=== PATIENT | male | born 1975 | race Caucasian/White ===

== ENCOUNTER 2017-05-06 22:40 | Emergency (ER) | payer BC, OTHER ==
[2017-05-06] MEDS ORDERED: Sodium Chloride 0.9% 1000 ML 1,000 ML IV STA (23:01)
--- NOTE | 2017-05-06 23:11 | ERPHSYRPT ---
- History of Present Illness Time Seen by Provider: 05/06/17 22:50 Historian: patient Physician History: PATIENT WITH A HISTORY OF CHRONIC ALCOHOL USE COMPLAINS OF ACUTE ONSET OF SHAKES FOLLOWED BY CHEST PAINS, FOLLOWED BY EMESIS X 1. DENIES CHEST PAIN UPON ARRIVAL, DIFFICULTY BREATHING OR SHORTNESS OF BREATH. ADMITS TO BEING NONCOMPLIANT WITH BLOOD PRESSURE MEDICAINE AND HIS POTASSIUM. Timing/Duration: today Activities at Onset: none Quality: throbbing Location: substernal Chest Pain Radiation: no radiation Severity of Pain-Max: moderate Severity of Pain-Current: none Associated Symptoms: nausea, vomiting Prior Chest Pain/Cardiac Workup: no prior chest pain Nitro Today/Relief: no nitro taken today Aspirin Treatment Today: no aspirin today Allergies/Adverse Reactions: No Known Drug Allergies Allergy (Verified 05/29/14 00:56) Home Medications: No Home Meds 0 mg PO UD 09/28/11 [History] Hx Tetanus, Diphtheria Vaccination/Date Given: Yes Hx Influenza Vaccination/Date Given: No Hx Pneumococcal Vaccination/Date Given: No - Review of Systems Constitutional: No Fever, No Chills Eyes: No Symptoms Ears, Nose, & Throat: No Symptoms Respiratory: No Cough, No Dyspnea Cardiac: Chest Pain, No Edema, No Syncope Abdominal/Gastrointestinal: Nausea, Vomiting, No Abdominal Pain, No Diarrhea Genitourinary Symptoms: No Symptoms, No Dysuria Musculoskeletal: No Symptoms, No Back Pain, No Neck Pain Skin: No Rash Neurological: No Dizziness, No Focal Weakness, No Sensory Changes Psychological: No Symptoms Endocrine: No Symptoms All Other Systems: Reviewed and Negative - Past Medical History Pertinent Past Medical History: No Respiratory History: Other (pleurisy) - Past Surgical History Past Surgical History: No - Social History Smoking Status: Current every day smoker How long have you smoked: 1 Exposure to second hand smoke: No Drug Use: none Patient Lives Alone: No - Nursing Vital Signs Nursing Vital Signs: Initial Vital Signs Temperature 97.8 F 05/06/17 23:02 Pulse Rate 78 05/06/17 23:02 Respiratory Rate 22 05/06/17 23:02 Blood Pressure 129/78 05/06/17 23:02 O2 Sat by Pulse Oximetry 97 05/06/17 23:02 Pain Scale Pain Intensity 6 - Physical Exam General Appearance: no apparent distress, alert Eye Exam: PERRL/EOMI, eyes nml inspection Ears, Nose, Throat Exam: normal ENT inspection, moist mucous membranes Neck Exam: normal inspection, non-tender, supple, full range of motion Respiratory Exam: normal breath sounds, chest tenderness (PARASTERNAL TENDERNESS T-2 TO T-5), lungs clear, No respiratory distress Cardiovascular Exam: regular rate/rhythm, normal heart sounds Gastrointestinal/Abdomen Exam: soft, normal bowel sounds (NONTENDER), No tenderness, No mass Back Exam: normal inspection, No CVA tenderness, No vertebral tenderness Extremity Exam: normal inspection, normal range of motion Neurologic Exam: alert, oriented x 3, cooperative, normal mood/affect, sensation nml, No motor deficits Skin Exam: normal color, warm, dry - Course EKG Interpreted by Me: RATE, Sinus Rhythm, NORMAL AXIS - Radiology Exams Chest X-ray Interpretation: Interpreted by me, Negative Ordered Tests: Active Orders 24 hr Category Date Time Status Electrical Experimental Mechanic STAT Care 05/06/17 23:02 Active EKG-ER Only STAT Care 05/06/17 23:01 Active CHEST 1 VIEW (PORTABLE) Stat Exams 05/06/17 23:02 Taken CBC W DIFF Stat Lab 05/06/17 23:24 Completed CMP Stat Lab 05/06/17 23:24 Completed D-DIMER QUANTITATION Stat Lab 05/06/17 23:24 Received ETHYL ALCOHOL Stat Lab 05/06/17 23:24 Completed MAGNESIUM Stat Lab 05/06/17 23:24 Completed NT PRO BNP Stat Lab 05/06/17 23:24 Completed TROPONIN Q3H Lab 05/06/17 23:24 Completed TROPONIN Q3H Lab 05/07/17 02:15 Ordered TROPONIN Q3H Lab 05/07/17 05:15 Ordered TROPONIN Q3H Lab 05/07/17 08:15 Ordered TROPONIN Q3H Lab 05/07/17 11:15 Ordered Urine Triage Profile Stat Lab 05/06/17 23:15 Completed Medication Summary Discontinued Medications Generic Name Dose Route Start Last Admin Trade Name Freq PRN Reason Stop Dose Admin Sodium Chloride 1,000 mls @ 999 mls/hr 05/06/17 23:01 05/06/17 23:18 Sodium Chloride 0.9% 1000 Ml IV 05/07/17 00:01 999 mls/hr .Q1H1M STA Administration Sodium Chloride Confirm 05/06/17 23:17 Sodium Chloride 0.9% 1000 Ml Administered 05/06/17 23:18 Dose 1,000 mls @ ud .ROUTE .STK-MED ONE Potassium Chloride 40 meq 05/07/17 00:22 Klor Con 10 Meq PO 05/07/17 00:23 STAT ONE Lab/Rad Data: Laboratory Result Diagrams 05/06/17 23:24 05/06/17 23:24 Laboratory Results 05/06/17 05/06/17 05/06/17 Range/Units 23:24 23:24 23:24 WBC (4.0-10.5) K/mm3 RBC (4.1-5.6) M/mm3 Hgb (12.5-18.0) gm/dl Hct (42-50) % MCV (78-100) fl MCH (26-32) pg MCHC (32-36) g/dl RDW (11.5-14.0) % Plt Count (150-450) K/mm3 MPV (6-9.5) fl Gran % (36.0-66.0) % Lymphocytes % (24.0-44.0) % Monocytes % (0.0-12.0) % Eosinophils % (0.00-5.0) % Basophils % (0.0-0.4) % Basophils # (0-0.4) D-Dimer < 215 (0-500) ng/mL Sodium 141 (136-145) mEq/L Potassium 3.1 L (3.5-5.1) mEq/L Chloride 104 (98-107) mEq/L Carbon Dioxide 24.2 (21-32) mEq/L Anion Gap 16.0 H (5-15) MEQ/L BUN 10 (9-20) mg/dL Creatinine 0.77 (0.55-1.30) mg/dl Estimated GFR > 60 ML/MIN Glucose 88 (70-110) MG/DL Calcium 8.9 (8.5-10.1) mg/dL Magnesium 2.4 (1.8-2.4) mg/dL Total Bilirubin 0.20 (0.2-1.0) mg/dL AST 22 (15-37) U/L ALT 33 (12-78) U/L Alkaline Phosphatase 82 (46-116) U/L Troponin I < 0.017 (0.000-0.056) ng/ml NT-Pro-B Natriuret Pep 20 (0-125) pg/ml Serum Total Protein 7.3 (6.4-8.2) gm/dL Albumin 3.8 (3.4-5.0) g/dL Urine Opiates Level (NEGATIVE) Ur Methadone (NEGATIVE) Urine Barbiturates (NEGATIVE) Ur Phencyclidine (PCP) (NEGATIVE) Urine Amphetamine (NEGATIVE) U Benzodiazepine Level (NEGATIVE) Urine Cocaine (NEGATIVE) Urine Marijuana (THC) (NEGATIVE) Ethyl Alcohol 0.132 H* (0.00-0.01) % 05/06/17 05/06/17 Range/Units 23:24 23:15 WBC 10.0 (4.0-10.5) K/mm3 RBC 5.14 (4.1-5.6) M/mm3 Hgb 15.6 (12.5-18.0) gm/dl Hct 46.0 (42-50) % MCV 89.5 (78-100) fl MCH 30.4 (26-32) pg MCHC 33.9 (32-36) g/dl RDW 13.4 (11.5-14.0) % Plt Count 212 (150-450) K/mm3 MPV 10.2 H (6-9.5) fl Gran % 51.2 (36.0-66.0) % Lymphocytes % 38.0 (24.0-44.0) % Monocytes % 7.7 (0.0-12.0) % Eosinophils % 2.6 (0.00-5.0) % Basophils % 0.5 (0.0-0.4) % Basophils # 0.05 (0-0.4) D-Dimer (0-500) ng/mL Sodium (136-145) mEq/L Potassium (3.5-5.1) mEq/L Chloride (98-107) mEq/L Carbon Dioxide (21-32) mEq/L Anion Gap (5-15) MEQ/L BUN (9-20) mg/dL Creatinine (0.55-1.30) mg/dl Estimated GFR ML/MIN Glucose (70-110) MG/DL Calcium (8.5-10.1) mg/dL Magnesium (1.8-2.4) mg/dL Total Bilirubin (0.2-1.0) mg/dL AST (15-37) U/L ALT (12-78) U/L Alkaline Phosphatase (46-116) U/L Troponin I (0.000-0.056) ng/ml NT-Pro-B Natriuret Pep (0-125) pg/ml Serum Total Protein (6.4-8.2) gm/dL Albumin (3.4-5.0) g/dL Urine Opiates Level NEG. (NEGATIVE) Ur Methadone NEG. (NEGATIVE) Urine Barbiturates NEG. (NEGATIVE) Ur Phencyclidine (PCP) NEG. (NEGATIVE) Urine Amphetamine NEG. (NEGATIVE) U Benzodiazepine Level NEG. (NEGATIVE) Urine Cocaine NEG. (NEGATIVE) Urine Marijuana (THC) NEG. (NEGATIVE) Ethyl Alcohol (0.00-0.01) % - Progress Progress Note: 05/07/17 00:43 ADMINISTERED KLOR CON 40MEQ ORALLY Will see patient in: other Counseled pt/family regarding: lab results - Departure Time of Disposition: 00:44 Departure Disposition: Home Clinical Impression: ACUTE EMESIS, HYPOKALEMIA Condition: Stable Critical Care Time: No Referrals: LENNOX ANGELES [Primary Care Provider] - Additional Instructions: BEGIN POTASSIUM KLOR CON 20MEQ DAILY FOR 10 DAYS. CONSULT YOUR PRIMARY CARE PROVIDER FOR FOLLOWUP. ZOFRAN 4MG EVERY 4-6 HOURS FOR NAUSEA. Prescriptions: Ondansetron ODT 4 MG [Zofran Odt 4 mg] 4 mg PO Q6H PRN PRN #8 tab.rapdis PRN Reason: NAUSEA Potassium Chloride 20 Meq [Klor-Con 20 MEQ] 0 meq PO DAILY 10 Days #10 tab
[2017-05-06] MEDS ORDERED: Sodium Chloride 0.9% 1000 ML 1,000 ML ONE (23:17)
[2017-05-06 23:27] LABS: BASOPHIL % 0.5 % (0.0-0.4); Basophil (Absolute #) 0.05 (0-0.4); Eosinophil % 2.6 % (0.00-5.0); Eosinophil (Absolute #) 0.26 (0-0.5); Granulocyte Absolute (ANC) 5.11 (1.4-6.9); Granulocytes % 51.2 % (36.0-66.0); Hemoglobin 15.6 gm/dl (12.5-18.0); Mean Cell Volume 89.5 fl (78-100); Mean Corpuscular Hemoglobin 30.4 pg (26-32); Mean Corpuscular Hgb Concent. 33.9 g/dl (32-36); Mean Platelet Volume 10.2 fl (6-9.5); Monocyte (Absolute #) 0.77 (0.0-1.3); Monocytes % 7.7 % (0.0-12.0); Platelet Count 212 K/mm3 (150-450); Red Blood Count 5.14 M/mm3 (4.1-5.6); Red Cell Distribution Width 13.4 % (11.5-14.0)
[2017-05-06 23:36] LABS: Amphetamine,Urine NEG. (NEGATIVE); Barbiturate,Urine NEG. (NEGATIVE); Benzodiazepine,Urine NEG. (NEGATIVE); Cocaine,Urine NEG. (NEGATIVE); Methadone,Urine NEG. (NEGATIVE); Opiate,Urine NEG. (NEGATIVE); PCP,Urine NEG. (NEGATIVE); THC,Urine NEG. (NEGATIVE)
[2017-05-07 00:01] LABS: ALBUMIN 3.8 g/dL (3.4-5.0); ALKALINE PHOSPHATASE 82 U/L (46-116); BLOOD UREA NITROGEN 10 mg/dL (9-20); CHLORIDE 104 mEq/L (98-107); Calcium 8.9 mg/dL (8.5-10.1); Carbon Dioxide 24.2 mEq/L (21-32); Creatinine 1 0.77 mg/dl (0.55-1.30); EST GLOMERULAR FILTRATION RATE > 60 ML/MIN; ETHYL ALCOHOL 0.132 % (0.00-0.01); Glucose 88 MG/DL (70-110); MAGNESIUM 2.4 mg/dL (1.8-2.4); NT PRO BNP 20 pg/ml (0-125); Potassium 3.1 mEq/L (3.5-5.1); SGOT/AST 22 U/L (15-37); SGPT/ALT 33 U/L (12-78); SODIUM 141 mEq/L (136-145); Total Protein 7.3 gm/dL (6.4-8.2)
[2017-05-07 00:02] VITALS: PULSE 68; O2SAT 98
[2017-05-07] MEDS ORDERED: Klor Con 10 MEQ PO ONE ×2 (00:22→00:47)
[2017-05-07 00:56] VITALS: BP 103/60
--- NOTE | 2017-05-07 08:52 | XRAY ---
Indication: Chest pain and cough. Comparison: May 28, 2014. Portable chest again demonstrates normal heart, lungs, and bony thorax with a few incidental calcified granulomas.
== END 2017-05-07 01:03 | disposition home or self-care (01) ==
LOC: ED 22:40
DX: R11.10 Vomiting, unspecified (principal); E87.6 Hypokalemia; Z72.0 Tobacco use; F10.10 Alcohol abuse, uncomplicated; R07.9 Chest pain, unspecified
CPT/HCPCS: 36415; 71045; 80053; 80307; 83735; 83880; 84484; 85025; 85379; 93005; 93041; 96360; 99283; 99284; G0480; A9270-GY